=== PATIENT | male | born 1955 | race Caucasian/White ===

== ENCOUNTER 2018-06-01 06:43 | Day surgery (SDC) | payer BC ==
[2018-06-01] MEDS ORDERED: LIDOCAINE 2% MDV (20MG/ML) 20ML VIAL IV ONE (06:44)
[2018-06-01] MEDS ORDERED: PROPOFOL 10 MG/ML VIAL IV ONE (06:44)
--- NOTE | 2018-06-02 07:50 | Operative Note ---
DATE OF SURGERY: 06/01/18 OPERATION: COLONOSCOPY. PREOPERATIVE DIAGNOSIS: Personal history of colon polyps and ulcerative colitis and family history of colon cancer. POSTOPERATIVE DIAGNOSIS: Normal exam. PREPARATION QUALITY: Excellent. ESTIMATED BLOOD LOSS: None. SPECIMENS: None. COMPLICATIONS: None. PROCEDURE: After informed consent was obtained from the patient, he was placed in the left lateral decubitus position in the endoscopy suite, sedated and monitored by the department of anesthesia. Digital rectal examination was unremarkable. A well-lubricated PXE250 colonoscope was inserted into the rectum and advanced to the cecum. The cecum, cecal bulb, ileocecal valve, appendiceal orifice, ascending colon, transverse colon, descending colon, sigmoid colon, and rectum were free of inflammatory changes, mass lesions, or polyps. J-turn views of the anorectum and forward views of the rectum were unremarkable. No evidence of active colitis was seen. The endoscope was straightened, the rectal ampulla deflated, and the endoscope was removed. RECOMMENDATIONS: The patient should continue his current medical program. I would recommend a repeat colonoscopy in 3 years based on his high-risk situation. As always, thank you for allowing me to participate in the healthcare of your patients. CC: Dr. Nahid MATHEW
== END 2018-06-01 08:30 | disposition home or self-care (01) ==
LOC: HOP 06:43
PROVIDERS: ATTEND Internal Medicine Gastroenterology
DX: Z12.11 Encounter for screening for malignant neoplasm of colon (principal); Z86.010 Personal history of colon polyps; Z80.0 Family history of malignant neoplasm of digestive organs; Z87.19 Personal history of other diseases of the digestive system
CPT/HCPCS: 00812; G0105